=== PATIENT | female | born 1950 | race Caucasian/White ===

== ENCOUNTER → 2020-05-08 15:19 | Outpatient (CLI) | payer MEDICARE, OTHER, SELFPAY ==
--- NOTE | 2020-05-08 15:24 | DI.RAD.S_ITS ---
PROCEDURE: XR CERVICAL SPINE 4V OR 5V INDICATIONS: cervical radiculopathy TECHNIQUE: 5 views of the cervical spine were acquired. COMPARISON: None. FINDINGS: Bones: No fractures or dislocations to the T1 level. No suspicious bony lesions. Loss of lordosis which could be related to muscle spasm, rigidity or simply positional. Multilevel disc degeneration, severe at the C4-C5, C5-C6 and C6-C7 levels. Oblique views are limited secondary to difficulties in positioning demonstrating moderate multilevel mid and lower cervical spine bilateral neural foraminal narrowing. Mild multilevel uncovertebral hypertrophy. Soft tissues: Prevertebral soft tissues are normal in thickness. IMPRESSION: Loss of lordosis and multilevel spondylosis. Dictated by: Mat Johnson [facility] Interpreted: Basilio Trinidad MD on 05/08/2020 at 16:56 Approved by: Basilio Trinidad M.D. on 05/08/2020 at 17:54
== END ==
PROVIDERS: Family Provider Chiropractor; PCP Family Medicine; Referring Provider Physical Medicine & Rehabilitation; Visit Provider Physical Medicine & Rehabilitation
DX: M50.30 Other cervical disc degeneration, unspecified cervical region (principal); M47.22 Other spondylosis with radiculopathy, cervical region; M50.121 Cervical disc disorder at C4-C5 level with radiculopathy
CPT/HCPCS: 72050

== ENCOUNTER → 2020-07-14 12:57 | Outpatient (CLI) | payer MEDICARE, OTHER, SELFPAY ==
--- NOTE | 2020-07-14 13:00 | DI.MRI.S_ITS ---
PROCEDURE: MR CERVICAL SPINE WO CON INDICATIONS: Cervical radiculopathy TECHNIQUE: Noncontrast sagittal T1 spin echo and T2 fast spin echo, sagittal STIR, foraminal oblique sagittal T2 fast spin echo, and axial gradient echo or T2 fast spin echo through the cervical spine. COMPARISON: [facility], CR, XR CERVICAL SPINE 4V OR 5V, 05/08/2020, 15:41. [facility], MR, C-SPINE WITHOUT CONTRAST, 12/17/2016, 16:45. FINDINGS: Image quality: Excellent. Alignment and Curvature: There is loss of normal cervical lordosis. Mild kyphosis at C4-C6. Bone Marrow: Marrow demonstrates normal overall signal. Moderate reactive signal within the endplates adjacent to the C4-C5, C5-C6, and C6-C7 intervertebral discs. Mild reactive signal within the endplates adjacent to the C3-C4 intervertebral disc. Spinal Cord: Visualized spinal cord has normal size and signal. No cerebellar tonsillar herniation. Paraspinous Soft Tissues: No paravertebral masses. Prevertebral soft tissues are normal in thickness. C2-C3: Moderate disc desiccation. No significant canal, or foraminal stenosis. No change. C3-C4: Moderate disc desiccation. Mild disc height loss. Mild diffuse disc bulge. Mild facet and uncovertebral hypertrophy bilaterally. Mild canal stenosis. Mild bilateral foraminal stenosis. No change. C4-C5: Moderate disc height loss and desiccation. Mild diffuse disc bulge/osteophyte with superimposed broad-based right posterolateral protrusion. Moderate right and mild left facet and uncovertebral hypertrophy. Moderate canal stenosis. Moderate right and mild left foraminal stenosis. No change. C5-C6: Severe disc height loss and desiccation. Mild diffuse disc bulge. Moderate facet and uncovertebral hypertrophy bilaterally. Moderate canal stenosis. Moderate right greater than left foraminal stenosis. No change. C6-C7: Moderate disc height loss and desiccation. Mild diffuse disc bulge. Mild facet and uncovertebral hypertrophy bilaterally. Mild canal stenosis. Moderate right and severe left foraminal stenosis. Left C7 nerve root compression. No change. C7-T1: Mild disc height loss and desiccation. Mild facet and uncovertebral hypertrophy bilaterally. No canal stenosis. No foraminal stenosis. IMPRESSION: 1. Multilevel degenerative disc and facet disease, as well as uncovertebral hypertrophy. 2. Multilevel canal stenosis, worst at C4-C5 and C5-C6, where there are moderate canal stenosis. 3. Multilevel foraminal stenosis, worst at C6-C7 where there is intraforaminal nerve root compression. Recommend correlation with clinical symptoms to ascertain relevance of this finding. Dictated by: Allan Zimmer M.D. on 07/15/2020 at 9:24 Approved by: Allan Zimmer M.D. on 07/15/2020 at 9:30
== END ==
PROVIDERS: Family Provider Chiropractor; PCP Family Medicine; Referring Provider Physical Medicine & Rehabilitation; Visit Provider Physical Medicine & Rehabilitation
DX: M50.11 Cervical disc disorder with radiculopathy, high cervical region (principal); M48.02 Spinal stenosis, cervical region
CPT/HCPCS: 72141

== ENCOUNTER → 2020-07-20 09:30 | Outpatient (CLI) | payer MEDICARE, OTHER, SELFPAY ==
[2020-07-22 02:28] LABS: COVID19 Sendout Not Detected (Not Detect)
== END ==
PROVIDERS: Family Provider Chiropractor; PCP Family Medicine; Visit Provider Nurse Practitioner
DX: Z11.59 Encounter for screening for other viral diseases (principal)
CPT/HCPCS: 87635

== ENCOUNTER 2020-07-23 10:34 | Outpatient (CLI) | payer MEDICARE, OTHER, SELFPAY ==
[2020-07-23] VITALS (8 sets, daily range): BP systolic 134–161; BP diastolic 80–91; PULSE 63–89; RESP 14–20; TEMP 36.1; O2SAT 95–99
--- NOTE | 2020-07-23 10:38 | DI.RAD.S_ITS ---
PROCEDURE: PAIN C/T INTERLAMINAR INJECT INDICATIONS: SPINAL STENOSIS COMPARISON: None. FINDINGS: Fluoroscopic spot filming was performed to verify placement of spinal needles at the C6-7 posterior midline interlaminar space), as labeled on the films. Appropriate location(s) of the needle tip(s) was confirmed by injection of iodinated contrast. IMPRESSION: Expected needle tip localization dorsally, C6-7 interlaminar space, for epidural steroid injection. Dictated by: Carlos Smalls M.D. on 07/23/2020 at 13:47 Approved by: Carlos Smalls M.D. on 07/23/2020 at 13:48
[2020-07-23] MEDS: fentaNYL 100 MCG/2 ML INJ 50 MCG IV (12:16)
[2020-07-23] MEDS: IOPAMIDOL 15 ML VIAL 3 ML INJ (12:16)
[2020-07-23] MEDS: MIDAZOLAM 5 MG/5 ML VIAL IV (12:21)
[2020-07-23] MEDS: DEXAMETHASONE 10 MG/ML VIAL 30 MG INJ (12:21)
[2020-07-23] MEDS: BUPIVACAINE 0.25% (PF) VIAL 2 ML INJ (12:22)
--- NOTE | 2020-07-23 12:37 | P.PCN_ITS ---
Date/Time/Diagnoses Date of procedure: 07/23/20 Time of procedure: 12:37 Pre-procedure diagnosis: 1. CERVICAL STENOSIS, 2. CERVICAL HNP WITH UPPER EXTREMITY RADICULAR FEATURES Post-procedure diagnosis: same Procedure Notes Procedure: 1. FLUORSCOPICALLY GUIDED CONTRAST CONTROLLED INTERLAMINAR EPIDURAL STEROID INJECTION - C6/7 TL LYUBOV Indications: Belen is referred by Dr. Rivera for treatment of Cervical HNP with Upper Extremity Paresthesias. Physician: Luis Alberto Peng Total Fluoroscopy time (seconds): 36 Total sedation minutes: 17 Complications: none Procedure in detail & Post-procedure care: FINDINGS Cervical Stenosis due to disc deterioration and nerve root irritation and nerve root irritation DESCRIPTION OF PROCEDURE Fluoroscopically guided, contrast-controlled C6/7 translaminar epidural steroid injection with conscious sedation. Following review of allergy and review of potential side effects and complications, including, but not necessarily limited to, infection, allergic reaction, local tissue breakdown, temporary as well as permanent nerve injury, stroke, paralysis, and possible , the patient indicated that patient understood and agreed to proceed. An informed consent document was signed by the patient, witnessed by a nurse, and placed in the patient's chart. Additionally, other treatment options including modalities, medications, and physical therapy were reviewed with the patient. After review of previous anaesthesic history and IV conscious sedation the patient was deemed safe to proceed with today?s procedure with IV conscious sed ation as ASA class II designation. Safety time-out was performed to confirm patient ID, procedure to be performed and site of procedure. IV sedation was accomplished with a combination of 3mg of Versed and 50mcg of Fentanyl administered by the RN after DO order, titrated to patient comfort during the course of the procedure while the patient remained responsive to all verbal commands. In the prone position, following sterile prep and drape of the cervical region, the C6/7 translaminar space was identified fluoroscopically. The skin was anesthetized via a 25-gauge 1.5-inch needle with 1% lidocaine solution. At this point, a 25-gauge, 2.5-inch short bevel spinal needle was atraumatically introduced and advanced under fluoroscopic guidance into epidural space at the C6/7 translaminar space. Depth was confirmed on lateral view. Radiological data, including multiple fluoroscopic views of the cervical spine, reveal a spinal needle at the C6/7 translaminar space. Lateral views then show placement of the needle in the epidural space. Subsequent views show contrast material flowing superiorly and inferiorly in the epidural space. DSA fluoroscopy with live contrast injection, once again, confirmed no vascular or intrathecal uptake. At this point, using loss of resistance technique with saline and air, the epidural space was entered. Following negative aspiration, injection of approximately 1.5 cc of Isovue-200 with live fluoroscopy in the AP view confirmed epidural flow in the epidural space without vascular or intrathecal uptake observed. Subsequently, a test dose of 1 cc of 1% lidocaine solution was injected and patient was observed for two minutes without signs or symptoms of complications, including abdominal pain, shortness of breath, bilateral upper or lower extremity weakness, nausea and vomiting, prior to steroid injection. At this point, 3cc or 30mg of dexamethasone was then injected without incident. The patient tolerated the procedure well without signs or symptoms of complications prior to being transferred to the recovery area for further monitoring, The patient was then transferred to the recovery area where they were observed for an appropriate period of time after the injection. The patient reported a VAS score of 6 prior to the procedure and a post-procedure VAS of 0. POST OP INSTRUCTIONS The patient was provided a Pain Log to continue to record their response to the target-specific procedure prior to follow-up visit with the referring provider. Additionally, specific post-injection care instructions and a contact number to our office were provided if concerns arise regarding possible complications associated with the procedure are suspected.
== END 2020-07-23 13:18 | disposition home or self-care (01) ==
LOC: RAD 10:37
PROVIDERS: Family Provider Chiropractor; PCP Family Medicine; Referring Provider Physical Medicine & Rehabilitation; Visit Provider Physical Medicine & Rehabilitation
DX: M48.02 Spinal stenosis, cervical region (principal); M50.123 Cervical disc disorder at C6-C7 level with radiculopathy; R20.2 Paresthesia of skin
CPT/HCPCS: 62321; 99152; J1100; J2250; J3010

== ENCOUNTER → 2021-06-10 08:27 | Outpatient (CLI) | payer MEDICARE, OTHER, SELFPAY ==
[2021-06-10 12:30] LABS: COVID19 -Nasal RAPID Negative (Negative)
== END ==
PROVIDERS: Family Provider Chiropractor; PCP Internal Medicine; Visit Provider Physical Medicine & Rehabilitation
DX: Z20.822 Contact with and (suspected) exposure to COVID-19 (principal)
CPT/HCPCS: 87635; C9803

== ENCOUNTER 2021-06-12 08:36 | Outpatient (CLI) | payer MEDICARE, OTHER, SELFPAY ==
[2021-06-12] VITALS (11 sets, daily range): BP systolic 118–187; BP diastolic 66–101; PULSE 69–89; RESP 8–16; TEMP 36.7; O2SAT 88–100
--- NOTE | 2021-06-12 | DI.RAD.S_ITS ---
PROCEDURE: XR HIP W PEL IF DONE CONNIE MIN 4V INDICATIONS: PAIN TECHNIQUE: AP pelvis with lateral view(s) of the bilateral hip(s). COMPARISON: None. FINDINGS: Bones: No fractures or dislocations. Pelvic ring appears intact. No suspicious bony lesions. Mild bilateral hip degenerative change. Soft tissues: The visualized bowel gas pattern is normal. No suspicious soft tissue calcifications. IMPRESSION: Mild bilateral hip degenerative change. No evidence acute bony abnormality of the pelvis and bilateral hips. If clinical suspicion and/or symptoms persist, further assessment with repeat plain films, or advanced imaging (e.g., CT, MRI, or bone scan) may be helpful for further assessment. Dictated by: Damian French M.D. on 06/12/2021 at 11:44 Approved by: Damian French M.D. on 06/12/2021 at 11:45
--- NOTE | 2021-06-12 08:38 | DI.RAD.S_ITS ---
PROCEDURE: PAIN C/T INTERLAMINAR INJECT INDICATIONS: C6-7 translaminar LYUBOV COMPARISON: [facility], , PAIN C/T INTERLAMINAR INJECT, 07/23/2020, 13:19. FINDINGS: Fluoroscopic spot filming was performed to verify placement of spinal needles at the C6-7 level, as labeled on the films. Appropriate location of the needle tip was confirmed by injection of iodinated contrast. IMPRESSION: Needle tip at the dorsal C6-7 interlaminar space. Dictated by: Benton Bowling M.D. on 06/12/2021 at 17:03 Approved by: Benton Bowling M.D. on 06/12/2021 at 17:04
[2021-06-12] MEDS: MIDAZOLAM 5 MG/5 ML VIAL IV (10:22)
[2021-06-12] MEDS: fentaNYL 100 MCG/2 ML INJ 50 MCG IV (10:22)
[2021-06-12] MEDS: DEXAMETHASONE 10 MG/ML VIAL 30 MG INJ (10:30)
[2021-06-12] MEDS: BUPIVACAINE 0.25% (PF) VIAL 2 ML INJ (10:30)
[2021-06-12] MEDS: IOPAMIDOL 15 ML VIAL 3 ML INJ (10:30)
--- NOTE | 2021-06-12 10:32 | P.PCN_ITS ---
Date/Time/Diagnoses Date of procedure: 06/12/21 Time of procedure: 10:32 Pre-procedure diagnosis: 1. CERVICAL STENOSIS, 2. CERVICAL HNP WITH UPPER EXTREMITY RADICULAR FEATURES Post-procedure diagnosis: same Procedure Notes Procedure: 1. FLUORSCOPICALLY GUIDED CONTRAST CONTROLLED INTERLAMINAR EPIDURAL STEROID INJECTION - C6/7 TL LYUBOV Indications: Familia is referred by Dr. Heard for treatment of Cervical HNP with Upper Extremity Paresthesias. Physician: Luis Alberto Peng Total Fluoroscopy time (seconds): 19 Total sedation minutes: 8 Complications: none Procedure in detail & Post-procedure care: FINDINGS Cervical Stenosis due to disc deterioration and nerve root irritation and nerve root irritation DESCRIPTION OF PROCEDURE Fluoroscopically guided, contrast-controlled C6/7 translaminar epidural steroid injection with conscious sedation. Following review of allergy and review of potential side effects and complications, including, but not necessarily limited to, infection, allergic reaction, local tissue breakdown, temporary as well as permanent nerve injury, stroke, paralysis, and possible , the patient indicated that patient understood and agreed to proceed. An informed consent document was signed by the patient, witnessed by a nurse, and placed in the patient's chart. Additionally, other treatment options including modalities, medications, and physical therapy were reviewed with the patient. After review of previous anaesthesic history and IV conscious sedation the patient was deemed safe to proceed with today?s procedure with IV conscious sedation as ASA class II designation. Safety time-out was performed to confirm patient ID, procedure to be performed and site of procedure. IV sedation was accomplished with a combination of 3mg of Versed and 50mcg of Fentanyl administered by the RN after DO order, titrated to patient comfort during the course of the procedure while the patient remained responsive to all verbal commands. In the prone position, following sterile prep and drape of the cervical region, the C6/7 translaminar space was identified fluoroscopically. The skin was anesthetized via a 25-gauge 1.5-inch needle with 1% lidocaine solution. At this point, a 25-gauge, 2.5-inch short bevel spinal needle was atraumatically introduced and advanced under fluoroscopic guidance into epidural space at the C6/7 translaminar space. Depth was confirmed on lateral view. Radiological data, including multiple fluoroscopic views of the cervical spine, reveal a spinal needle at the C6/7 translaminar space. Lateral views then show placement of the needle in the epidural space. Subsequent views show contrast material flowing superiorly and inferiorly in the epidural space. DSA fluoroscopy with live contrast injection, once again, confirmed no vascular or intrathecal uptake. At this point, using loss of resistance technique with saline and air, the epidural space was entered. Following negative aspiration, injection of a pproximately 1.5 cc of Isovue-200 with live fluoroscopy in the AP view confirmed epidural flow in the epidural space without vascular or intrathecal uptake observed. Subsequently, a test dose of 1 cc of 1% lidocaine solution was injected and patient was observed for two minutes without signs or symptoms of complications, including abdominal pain, shortness of breath, bilateral upper or lower extremity weakness, nausea and vomiting, prior to steroid injection. At this point, 3cc or 30mg of dexamethasone was then injected without incident. The patient tolerated the procedure well without signs or symptoms of complications prior to being transferred to the recovery area for further monitoring, The patient was then transferred to the recovery area where they were observed for an appropriate period of time after the injection. The patient reported a VAS score of 6 prior to the procedure and a post-procedure VAS of 0. POST OP INSTRUCTIONS The patient was provided a Pain Log to continue to record their response to the target-specific procedure prior to follow-up visit with the referring provider. Additionally, specific post-injection care instructions and a contact number to our office were provided if concerns arise regarding possible complications associated with the procedure are suspected.
== END 2021-06-12 11:00 | disposition home or self-care (01) ==
LOC: RAD 08:38
PROVIDERS: Family Provider Chiropractor; PCP Internal Medicine; Referring Provider Physical Medicine & Rehabilitation; Visit Provider Physical Medicine & Rehabilitation
DX: M48.02 Spinal stenosis, cervical region (principal); M25.552 Pain in left hip; M50.123 Cervical disc disorder at C6-C7 level with radiculopathy
CPT/HCPCS: 62321; 73522; J1100; J2250; J3010

== ENCOUNTER → 2022-05-27 14:53 | Outpatient (CLI) | payer MEDICARE, OTHER, SELFPAY ==
--- NOTE | 2022-05-27 14:55 | DI.MG.S_ITS ---
UNILATERAL RIGHT DIGITAL SCREENING MAMMOGRAM 3D/2D WITH CAD: 05/27/2022 CLINICAL: Routine screening. Personal history of left breast cancer. Comparison is made to exam dated: 01/21/2021 mammogram - outside. The right breast is heterogeneously dense, which may obscure small masses (category c / 51-75% glandular tissue). Current study was also evaluated with a Computer Aided Detection (CAD) system. No significant masses, calcifications, or other findings are seen in the breast. There has been no significant interval change. IMPRESSION: NEGATIVE There is no mammographic evidence of malignancy. A 1 year screening mammogram is recommended. This exam was interpreted at Station ID: [id number]. NOTE: For mammograms, a report in lay terms will be sent to the patient. Approximately 15% of breast malignancies will not be visualized mammographically. In the management of a palpable breast mass, a negative mammogram must not discourage biopsy of a clinically suspicious lesion. Electronically Signed By: Uriel tran/chaz:05/27/2022 17:26:47 letter sent: Normal Exam ACR BI-RADS Category 1: Negative 3341F
--- NOTE | 2022-05-27 14:55 | DI.CT.S_ITS ---
PROCEDURE: CT CHEST WO CON INDICATIONS: ROUTINE BREAST SCREENING;LUNG SCREEN TECHNIQUE: Noncontrast 5 mm thick sections acquired from the pulmonary apices to the posterior costophrenic angles. 1 mm lung window, 5 mm thick coronal and sagittal and 7 mm axial MIP reformats were then acquired. For radiation dose reduction, the following was used: automated exposure control, adjustment of mA and/or kV according to patient size. COMPARISON: None. FINDINGS: Image quality: Excellent. Lungs and pleura: No acute air space opacities. 9 x 11 mm nodule in the left lower lobe with a central calcification. Ill-defined 15 mm ground-glass opacity in the right upper lobe series 3, image 67. No pleural effusions or pneumothorax. Central and peripheral airways are patent and normal in caliber. Mediastinum: Heart size is normal. The coronary arteries have atherosclerotic calcifications. No pericardial effusion. No mediastinal adenopathy by size criteria. Thoracic aorta and central pulmonary arteries are normal in size. Esophagus is normal in caliber. Small hiatal hernia. Bones and chest wall: No suspicious bony lesions. No vertebral body compression fractures. No axillary or supraclavicular adenopathy by size criteria. Thyroid gland is normal. There are surgical clips in the left axilla. Abdomen: Visualized upper abdominal solid organs and bowel loops appear normal in the absence of contrast. IMPRESSION: 1. 9 x 11 mm nodule in the left lower lobe with a central calcification is benign. 2. Subtle 15 mm ground-glass opacity in the right upper lobe. LUNG-RADS 2. Very low likelihood of becoming clinically active cancer due to small size < 6 millimeters; continue annual screening with low-dose CT. Dictated by: Serge Peña M.D. on 05/27/2022 at 21:27 Approved by: Serge Peña M.D. on 05/27/2022 at 21:35
== END ==
PROVIDERS: Family Provider Chiropractor; PCP Internal Medicine; Referring Provider Internal Medicine; Visit Provider Internal Medicine
DX: Z12.31 Encounter for screening mammogram for malignant neoplasm of breast (principal); Z87.891 Personal history of nicotine dependence; Z85.3 Personal history of malignant neoplasm of breast; R91.1 Solitary pulmonary nodule
CPT/HCPCS: 71250; 77063; 77067

== ENCOUNTER → 2023-05-28 14:24 | Outpatient (CLI) | payer MEDICARE, OTHER, SELFPAY ==
--- NOTE | 2023-05-28 | DI.MG.S_ITS ---
UNILATERAL RIGHT DIGITAL SCREENING MAMMOGRAM 3D/2D WITH CAD: 05/28/2023 CLINICAL: Routine screening. Personal history of left breast cancer. Family history of breast cancer. Comparison is made to exams dated: 05/27/2022 mammogram - [facility], 12/23/2020 mammogram, and 10/26/2019 mammogram - [facility]. The right breast is heterogeneously dense, which may obscure small masses (category c / 51-75% glandular tissue). Current study was also evaluated with a Computer Aided Detection (CAD) system. There is a possible developing 0.7 cm oval equal density asymmetry in the right breast middle depth superior region seen on the mediolateral oblique view only. This is more prominent and increased in size. No other significant masses or calcifications are seen in the breast. IMPRESSION: INCOMPLETE: NEEDS ADDITIONAL IMAGING EVALUATION The possible developing 0.7 cm oval equal density asymmetry in the right breast has a differential diagnosis of fibroglandular tissue and is indeterminate. Additional views with possible ultrasound are recommended. This exam was interpreted at Station ID: [id number]. NOTE: For mammograms, a report in lay terms will be sent to the patient. Approximately 15% of breast malignancies will not be visualized mammographically. In the management of a palpable breast mass, a negative mammogram must not discourage biopsy of a clinically suspicious lesion. Electronically Signed By: Talha Beal M.D. aty/:05/28/2023 16:19:53 letter sent: Additional Imaging Needed ACR BI-RADS Category 0: Incomplete [id number]
== END ==
PROVIDERS: Family Provider Chiropractor; PCP Internal Medicine; Referring Provider Internal Medicine; Visit Provider Internal Medicine
DX: Z12.31 Encounter for screening mammogram for malignant neoplasm of breast (principal); Z85.3 Personal history of malignant neoplasm of breast; Z80.3 Family history of malignant neoplasm of breast
CPT/HCPCS: 77063; 77067

== ENCOUNTER → 2023-06-08 08:34 | Outpatient (CLI) | payer MEDICARE, OTHER, SELFPAY ==
--- NOTE | 2023-06-08 | DI.MG.S_ITS ---
UNILATERAL RIGHT DIGITAL DIAGNOSTIC MAMMOGRAM 3D/2D WITH ADDITIONAL VIEWS: 06/08/2023 CLINICAL: Additional evaluation requested from prior study. Comparison is made to exams dated: 05/28/2023 mammogram, 05/27/2022 mammogram - [facility], and 01/21/2021 mammogram - outside. The right breast is heterogeneously dense, which may obscure small masses (category c / 51-75% glandular tissue). The possible developing asymmetry in the right breast middle depth superior region seen on the mediolateral oblique view only is not seen in additional views. No other significant masses or calcifications are seen in the breast. IMPRESSION: BENIGN The right breast asymmetry seen on the screening mammogram likely respresents superimposed fibroglandular tissue and is benign. There is no mammographic evidence of malignancy. Return to annual mammogram screening schedule is recommended. This exam was interpreted at Station ID: [id number]. NOTE: For mammograms, a report in lay terms will be sent to the patient. Approximately 15% of breast malignancies will not be visualized mammographically. In the management of a palpable breast mass, a negative mammogram must not discourage biopsy of a clinically suspicious lesion. Electronically Signed By: Una daugherty/:06/08/2023 09:08:16 letter sent: Normal Exam ACR BI-RADS Category 2: Benign Finding(s) [id number]
== END ==
PROVIDERS: Family Provider Chiropractor; PCP Internal Medicine; Referring Provider Internal Medicine; Visit Provider Internal Medicine
DX: R92.8 Other abnormal and inconclusive findings on diagnostic imaging of breast (principal)
CPT/HCPCS: 77065; G0279

== ENCOUNTER → 2023-06-09 14:25 | Outpatient (CLI) | payer MEDICARE, OTHER, SELFPAY ==
--- NOTE | 2023-06-09 14:29 | DI.RAD.S_ITS ---
PROCEDURE: XR CERVICAL SPINE 4V OR 5V INDICATIONS: Cervical radiculopathy TECHNIQUE: 5 views of the cervical spine acquired. COMPARISON: [facility], CR, XR CERVICAL SPINE 4V OR 5V, 05/08/2020, 15:41. FINDINGS: Bones: Disc space narrowing anterior osteophytes with hypertrophic facet joints noted in the mid to lower cervical spine. Evaluation of the right neural foramina is nondiagnostic due to patient positioning. Left neural foramina are widely patent. Craniovertebral relationships normal. Soft tissues: No prevertebral soft tissue swelling. IMPRESSION: Degenerative disc disease in the mid to lower cervical spine. Evaluation the right neural foramina are nondiagnostic due to positioning. Consider follow-up CT evaluation Approved by: Dk Yañez M.D. on 06/09/2023 at 19:02
--- NOTE | 2023-06-09 14:29 | DI.RAD.S_ITS ---
PROCEDURE: XR LUMBAR SPINE MIN 4V INDICATIONS: Low back pain right hip pain TECHNIQUE: 5 views of the lumbar spine were acquired, including bilateral oblique views. COMPARISON: None. FINDINGS: Bones: 5 nonrib-bearing vertebrae are present. There is normal bony alignment. No vertebral body compression fractures. No suspicious bony lesions. Convex right thoracolumbar scoliosis has a rotary component as well. Disc space narrowing and hypertrophic facet joints noted in the mid lumbar lower lumbar spine. No evidence of fracture or traumatic malalignment Soft tissues: Overlying bowel gas pattern is normal. No suspicious soft tissue calcifications. Oblique images: No pars defects. IMPRESSION: Thoracolumbar rotodextroscoliosis Approved by: Dk Yañez M.D. on 06/09/2023 at 18:59
== END ==
PROVIDERS: Family Provider Chiropractor; PCP Internal Medicine; Referring Provider Physical Medicine & Rehabilitation; Visit Provider Physical Medicine & Rehabilitation
DX: M50.10 Cervical disc disorder with radiculopathy, unspecified cervical region (principal); M16.11 Unilateral primary osteoarthritis, right hip; M47.816 Spondylosis without myelopathy or radiculopathy, lumbar region; M41.9 Scoliosis, unspecified; M47.22 Other spondylosis with radiculopathy, cervical region; M48.02 Spinal stenosis, cervical region; M70.61 Trochanteric bursitis, right hip; Z90.12 Acquired absence of left breast and nipple
CPT/HCPCS: 72050; 72110; 99214

== ENCOUNTER → 2023-06-10 18:36 | Outpatient (CLI) | payer MEDICARE, OTHER, SELFPAY ==
--- NOTE | 2023-06-10 18:38 | DI.MRI.S_ITS ---
PROCEDURE: MR CERVICAL SPINE WO CON INDICATIONS: C7 radiculopathy TECHNIQUE: Noncontrast sagittal T1 spin echo and T2 fast spin echo, sagittal STIR, foraminal oblique sagittal T2 fast spin echo, and axial gradient echo or T2 fast spin echo through the cervical spine. COMPARISON: [facility], MR, MR CERVICAL SPINE WO CON, 07/14/2020, 13:12. FINDINGS: Image quality: Excellent. Alignment and Curvature: Reversal the normal cervical lordosis, stable from the prior. Degenerative grade 1 anterior spondylolisthesis C2-3 and C3-4. Bone Marrow: Degenerative endplate changes Spinal Cord: Visualized spinal cord has normal size and signal. No cerebellar tonsillar herniation. Paraspinous Soft Tissues: No paravertebral masses. Prevertebral soft tissues are normal in thickness. C2-C3: Normal appearance. C3-C4: Normal appearance. C4-C5: Disc space narrowing with posterior disc osteophyte complex results in [id number] central stenosis. Moderate bilateral foraminal stenosis C5-C6: A disc space narrowing and posterior disc osteophyte complex results in mild central stenosis. Mild bilateral foraminal stenosis. C6-C7: Disc space narrowing and posterior disc osteophyte complex. Mild central stenosis. Moderate right and no left foraminal stenosis. C7-T1: Normal appearance. IMPRESSION: Degenerative disc disease and arthropathy results in varying degrees of central and foraminal stenosis including mild to moderate central stenosis C4-5 and moderate foraminal stenosis C6-7 Approved by: Dk Yañez M.D. on 06/11/2023 at 15:50
== END ==
PROVIDERS: Family Provider Chiropractor; PCP Internal Medicine; Referring Provider Physical Medicine & Rehabilitation; Visit Provider Physical Medicine & Rehabilitation
DX: M48.02 Spinal stenosis, cervical region (principal); M47.812 Spondylosis without myelopathy or radiculopathy, cervical region; M50.321 Other cervical disc degeneration at C4-C5 level
CPT/HCPCS: 72141

== ENCOUNTER → 2023-06-16 14:15 | Outpatient (CLI) | payer MEDICARE, OTHER, SELFPAY ==
--- NOTE | 2023-06-16 | DI.RAD.S_ITS ---
Bone Density Report Name: BERTIN RAYGOZA Age: 72 Sex: Female Ethnicity: White Date of : 1950 Indication: postmenopausal; screening for osteoporosis; Referring Provider: DESTINY IBARRA Study: Bone densitometry was performed. Exam Date: June 16, 2023 Accession number: [id number] Bone Density: Region BMD T-score Z-score Classification AP Spine(L1-L4) 0.894 -1.4 0.8 Osteopenia Femoral Neck (Left) 0.563 -2.6 -0.7 Osteoporosis Total Hip (Left) 0.770 -1.4 0.2 Osteopenia Femoral Neck (Right) 0.568 -2.5 -0.6 Osteoporosis Total Hip (Right) 0.695 -2.0 -0.4 Osteopenia Total Hip Mean 0.733 -1.7 -0.1 Osteopenia World Health Organization criteria for BMD impression classify patients as: Normal (T-score at or above -1.0), Osteopenia (T-score between -1.0 and -2.5), or Osteoporosis (T-score at or below -2.5). Impression: The patient has osteoporosis, based on the Left Femoral Neck T-score. Discussion: INCREASED RISK OF FRACTURE. BONE DENSITY IS UNDESIRABLY LOW AT ONE OR MORE SKELETAL SITES, CONSISTENT WITH POSTMENOPAUSAL OSTEOPOROSIS. This patient's lowest T-score meets the World Health Organization's (WHO) criteria for osteoporosis at one or more sites (T-score -2.5 or below). In untreated patients, the risk of osteoporotic fracture increases approximately two-fold for each 1.0 SD decrease in T-score. Low bone density is not the only risk factor for fracture; also consider factors such as patient's age, frailty or poor health, risk of falling, risk of injury, previous osteoporotic fracture, family history of osteoporosis, cigarette smoking, low body weight, etc. Not everyone with low bone mineral density has osteoporosis; osteomalacia and other metabolic bone disorders should also be considered. Patients who have osteoporosis should be evaluated for specific diseases and conditions (secondary causes) that may cause or contribute to bone loss. The [place] [employer]ocrinologists (AACE) and National Osteoporosis Foundation (NOF) recommend pharmacologic intervention for all postmenopausal women whose T-score is in this range. The patient should follow a healthful lifestyle (good nutrition with adequate calcium and vitamin D, and appropriate weight-bearing exercise). Follow-Up: Consider a repeat BMD and Vertebral Fracture Assessment (VFA) exam in 2 years or sooner if medically necessary, to reassess this patient's status. Reported by: ILA GOSS M.D. on 06/18/2023 9:17:00 AM.
== END ==
PROVIDERS: Family Provider Chiropractor; PCP Internal Medicine; Referring Provider Internal Medicine; Visit Provider Internal Medicine
DX: M81.0 Age-related osteoporosis without current pathological fracture (principal); M05.9 Rheumatoid arthritis with rheumatoid factor, unspecified; Z79.83 Long term (current) use of bisphosphonates
CPT/HCPCS: 77080

== ENCOUNTER 2023-06-24 09:31 | Outpatient (CLI) | payer MEDICARE, OTHER, SELFPAY ==
[2023-06-24] VITALS (9 sets, daily range): BP systolic 130–145; BP diastolic 79–93; PULSE 64–75; RESP 11–24; TEMP 36.7; O2SAT 95–99
--- NOTE | 2023-06-24 09:33 | DI.RAD.S_ITS ---
PROCEDURE: PAIN C/T INTERLAMINAR INJECT INDICATIONS: SPINAL STENOSIS COMPARISON: [facility], , PAIN C/T INTERLAMINAR INJECT, 06/12/2021, 10:23. FINDINGS: Fluoroscopic spot filming was performed to verify placement of a spinal needle at the C6-C7 level, as labeled on the films. Appropriate location of the needle tip was confirmed by injection of iodinated contrast. IMPRESSION: No significant intraprocedural abnormality. Dictated by: Pedro Siddiqi M.D. on 06/24/2023 at 18:22 Approved by: ePdro Siddiqi M.D. on 06/24/2023 at 18:22
[2023-06-24] MEDS: MIDAZOLAM 2 MG/2 ML VIAL IV (11:10)
[2023-06-24] MEDS: BUPIVACAINE 0.25% (PF) VIAL 2 ML INJ (11:15)
[2023-06-24] MEDS: DEXAMETHASONE 10 MG/ML VIAL 20 MG INJ (11:16)
[2023-06-24] MEDS: fentaNYL 100 MCG/2 ML INJ IV (11:17)
[2023-06-24] MEDS: iopamidoL 15 ML VIAL 3 ML INJ (11:18)
--- NOTE | 2023-06-24 11:30 | P.PCN_ITS ---
Date/Time/Diagnoses Date of procedure: 06/24/23 Time of procedure: 11:30 Pre-procedure diagnosis: 1. CERVICAL STENOSIS, 2. CERVICAL HNP WITH UPPER EXTREMITY RADICULAR FEATURES Post-procedure diagnosis: same Procedure Notes Procedure: 1. FLUORSCOPICALLY GUIDED CONTRAST CONTROLLED INTERLAMINAR EPIDURAL STEROID INJECTION - C6/7 TL LYUBOV Indications: Belen is referred by Dr. Heard for treatment of Cervical HNP with Upper Extremity Paresthesias. Physician: Luis Alberto Peng Total Fluoroscopy time (seconds): 36 Total sedation minutes: 17 Complications: none Procedure in detail & Post-procedure care: FINDINGS Cervical Stenosis due to disc deterioration and nerve root irritation and nerve root irritation DESCRIPTION OF PROCEDURE Fluoroscopically guided, contrast-controlled C6/7 translaminar epidural steroid injection with conscious sedation. Following review of allergy and review of potential side effects and complications, including, but not necessarily limited to, infection, allergic reaction, local tissue breakdown, temporary as well as permanent nerve injury, stroke, paralysis, and possible , the patient indicated that patient understood and agreed to proceed. An informed consent document was signed by the patient, witnessed by a nurse, and placed in the patient's chart. Additionally, other treatment options including modalities, medications, and physical therapy were reviewed with the patient. After review of previous anaesthesic history and IV conscious sedation the patient was deemed safe to proceed with today?s procedure with IV conscious se dation as ASA class II designation. Safety time-out was performed to confirm patient ID, procedure to be performed and site of procedure. IV sedation was accomplished with a combination of 2mg of Versed and 100mcg of Fentanyl administered by the RN after DO order, titrated to patient comfort during the course of the procedure while the patient remained responsive to all verbal commands. In the prone position, following sterile prep and drape of the cervical region, the C6/7 translaminar space was identified fluoroscopically. The skin was anesthetized via a 25-gauge 1.5-inch needle with 1% lidocaine solution. At this point, a 25-gauge, 2.5-inch short bevel spinal needle was atraumatically introduced and advanced under fluoroscopic guidance into epidural space at the C6/7 translaminar space. Depth was confirmed on lateral view. Radiological data, including multiple fluoroscopic views of the cervical spine, reveal a spinal needle at the C6/7 translaminar space. Lateral views then show placement of the needle in the epidural space. Subsequent views show contrast material flowing superiorly and inferiorly in the epidural space. DSA fluoroscopy with live contrast injection, once again, confirmed no vascular or intrathecal uptake. At this point, using loss of resistance technique with saline and air, the epidural space was entered. Following negative aspiration, injection of approximately 1.5 cc of Isovue-200 with live fluoroscopy in the AP view confirmed epidural flow in the epidural space without vascular or intrathecal uptake observed. Subsequently, a test dose of 1 cc of 1% lidocaine solution was injected and patient was observed for two minutes without signs or symptoms of complications, including abdominal pain, shortness of breath, bilateral upper or lower extremity weakness, nausea and vomiting, prior to steroid injection. At this point, 2cc or 20mg of dexamethasone was then injected without incident. The patient tolerated the procedure well without signs or symptoms of complications prior to being transferred to the recovery area for further monitoring, The patient was then transferred to the recovery area where they were observed for an appropriate period of time after the injection. The patient reported a VAS score of 7 prior to the procedure and a post-procedure VAS of 1. POST OP INSTRUCTIONS The patient was provided a Pain Log to continue to record their response to the target-specific procedure prior to follow-up visit with the referring provider. Additionally, specific post-injection care instructions and a contact number to our office were provided if concerns arise regarding possible complications associated with the procedure are suspected.
--- NOTE | 2023-06-24 11:40 | PC.NURSE ---
US guided IV insertion by MALCOLM Ledezma.
== END 2023-06-24 11:50 | disposition home or self-care (01) ==
LOC: RAD 09:32
PROVIDERS: Family Provider Chiropractor; PCP Internal Medicine; Referring Provider Physical Medicine & Rehabilitation; Visit Provider Physical Medicine & Rehabilitation
DX: M48.02 Spinal stenosis, cervical region (principal); M50.123 Cervical disc disorder at C6-C7 level with radiculopathy
CPT/HCPCS: 62321; 99152; J1100; J2250; J3010; J3490

== ENCOUNTER → 2023-12-31 13:29 | Outpatient (CLI) | payer MEDICARE, OTHER, SELFPAY ==
--- NOTE | 2023-12-31 13:34 | DI.MRI.S_ITS ---
PROCEDURE: MR HIP RT WO CON INDICATIONS: Right hip pain s/p horse related injury remote TECHNIQUE: Noncontrast coronal T1 spin echo and STIR through the bony pelvis. Coronal and axial T2 fast spin echo with fat saturation, sagittal T1 spin echo, and oblique axial T2 fast spin echo with fat saturation through the hip. COMPARISON: None. FINDINGS: Labrum: Anterior superior labral tear. Ligament: Unremarkable Tendons: The right iliopsoas, adductor, hamstring, and gluteal minimus and gluteal medius are unremarkable. Bones: There is small area of focal chondral defect in the anterior superior acetabulum (series 6, image 12). No acute fracture. No avascular necrosis of the right hip. Other bone findings: Mild marrow edema at the superior endplate of S1, incompletely evaluated. Marrow signal of the sacrum, bilateral iliac wings, and bilateral proximal femur are normal for age. No acute fracture or dislocation of either hip. Other soft tissue findings: Severe sigmoid colon diverticulosis. IMPRESSION: 1. Anterior superior labral tear. 2. Focal chondral defect in the anterior superior acetabulum. 3. Mild marrow edema of the superior endplate of S1, incompletely evaluated, favoring degenerative. Dictated by: Cady Ramirez M.D. on 12/31/2023 at 19:10 Approved by: Cady Ramirez M.D. on 12/31/2023 at 19:19
== END ==
LOC: MRI 13:30
PROVIDERS: Family Provider Chiropractor; PCP Internal Medicine; Referring Provider Physical Medicine & Rehabilitation; Visit Provider Physical Medicine & Rehabilitation
DX: S73.191A Other sprain of right hip, initial encounter (principal); M16.11 Unilateral primary osteoarthritis, right hip; K57.30 Diverticulosis of large intestine without perforation or abscess without bleeding; R60.0 Localized edema
CPT/HCPCS: 73721

== ENCOUNTER → 2024-07-26 13:16 | Outpatient (CLI) | payer MEDICARE, OTHER, SELFPAY ==
--- NOTE | 2024-07-26 13:24 | DI.US.S_ITS ---
LIMITED ULTRASOUND OF RIGHT BREAST AND AXILLA: 07/26/2024 CLINICAL: Patient returns today to evaluate a focal asymmetry in the right breast. Comparison is made to exams dated: 07/26/2024 mammogram, 06/08/2023 mammogram, 05/28/2023 mammogram, 05/27/2022 mammogram - [facility], 01/21/2021 mammogram - outside, and 12/23/2020 mammogram - [facility]. Color flow and real-time ultrasound of the right breast 4-5 o'clock, 9-10 o'clock, retroareolar, and axilla regions were performed. No sonographic abnormality is seen in the area of clinical concern in the right breast retroareolar region, 5 o'clock, 6 cm from the nipple, 4 o'clock, 2 cm from nipple, as well as 9 and 10 o'clock, 7 cm from the nipple. Morphologically normal lymph nodes are seen in the right axilla. IMPRESSION: BENIGN No sonographic abnormality in the areas of clinical concern. Morphologically normal right axillary lymph nodes are benign. No mammographic or sonographic evidence of malignancy. A 1 year screening mammogram is recommended. Clinical follow-up is also recommended, and further management of palpable abnormalities or other focal signs or symptoms should be based on the results of clinical evaluation. If palpable abnormality or other concerning symptom persists or progresses, further clinical evaluation should be considered. Findings and recommendations were conveyed to the patient during today's evaluation. This exam was interpreted at Station ID: [id number]. Electronically Signed By: Hanna Perez M.D., Ph.D. eb/:07/26/2024 16:47:04 letter sent: Clinical Evaluation ACR BI-RADS Category 2: Benign
--- NOTE | 2024-07-26 13:24 | DI.MG.S_ITS ---
UNILATERAL RIGHT DIGITAL DIAGNOSTIC MAMMOGRAM 3D/2D POST MASTECTOMY: 07/26/2024 CLINICAL: Right breast lumps. Comparison is made to exams dated: 06/08/2023 mammogram, 05/28/2023 mammogram, and 05/27/2022 mammogram - [facility]. The breasts are heterogeneously dense, which may obscure small masses (category c / 51-75% glandular tissue). A BB marker was placed in the area of clinical concern, and no mammographic abnormality is identified. No significant masses, calcifications, or other findings are seen in the breast. IMPRESSION: INCOMPLETE: NEED ADDITIONAL IMAGING EVALUATION No mammographic abnormality in the areas of clinical concern. Recommend further evaluation with targeted breast ultrasound, which will immediately follow this exam. This exam was interpreted at Station ID: [id number]. NOTE: For mammograms, a report in lay terms will be sent to the patient. Approximately 15% of breast malignancies will not be visualized mammographically. In the management of a palpable breast mass, a negative mammogram must not discourage biopsy of a clinically suspicious lesion. Electronically Signed By: Hanna Perez M.D., Ph.D. eb/:07/26/2024 16:41:02 letter sent: Additional Imaging Needed ACR BI-RADS Category 0: Incomplete: Need Additional Imaging Evaluation
--- NOTE | 2024-07-26 13:25 | DI.RAD.S_ITS ---
PROCEDURE: XR LUMBAR SPINE 2-3V INDICATIONS: BACK PAIN TECHNIQUE: 3 views of the lumbar spine were acquired. COMPARISON: [facility], , XR LUMBAR SPINE MIN 4V, 06/09/2023, 14:34. FINDINGS: Lumbar spine curvature and alignment: Moderate dextroscoliosis of the lower thoracic and lumbar spine appreciated. Bones: There are no osseous abnormalities. Disc spaces: Severe degenerative disc disease is seen in each level. There is severe degenerative facet disease L4-5 and L5-S1. Soft tissues: No soft tissue swelling, calcification or mass. IMPRESSION: Multilevel degeneration Dictated by: Constantino Willams M.D. on 07/27/2024 at 8:57 Approved by: Constantino Willams M.D. on 07/27/2024 at 8:57
--- NOTE | 2024-07-26 13:25 | DI.RAD.S_ITS ---
PROCEDURE: XR CERVICAL SPINE 2V OR 3V INDICATIONS: BACK PAIN TECHNIQUE: Three-view (s) of the cervical spine were acquired. COMPARISON: [facility], CR, XR CERVICAL SPINE 4V OR 5V, 06/09/2023, 14:34. FINDINGS: Cervical spine curvature and alignment: Normal. Bones: There are no osseous abnormalities. Disc spaces: Moderate C4-5, C5-6, C6-7 and C7-T1 degenerative disc disease noted. There is mild degenerative facet disease C3-4 through C7-T1. No change. Soft tissues: Enlargement of the posterior glossal soft tissues is unchanged from exam over 1 year ago IMPRESSION: Multilevel degeneration-stable Moderate tongue base enlargement which is chronic. Please correlate with physical exam findings Dictated by: Constantino Willams M.D. on 07/27/2024 at 8:49 Approved by: Constantino Willams M.D. on 07/27/2024 at 8:51
--- NOTE | 2024-07-26 13:25 | DI.RAD.S_ITS ---
PROCEDURE: XR THORACIC SPINE 3V INDICATIONS: BACK PAIN TECHNIQUE: 3 views of the thoracic spine were acquired. COMPARISON: None. FINDINGS: Thoracic spine curvature and alignment: Thoracic spine is anatomically aligned. Mild distal scoliosis of the upper lumbar spine appreciated. Bones: There are no osseous abnormalities. Disc spaces: Mild degenerative disc disease is seen throughout the thoracic spine. Intervertebral foramen: Grossly normal in width. Soft tissues: No soft tissue swelling, calcification or mass. IMPRESSION: Mild degenerative disc disease. Dictated by: Constantino Willams M.D. on 07/27/2024 at 8:47 Approved by: Constantino Willams M.D. on 07/27/2024 at 8:48
== END ==
PROVIDERS: Family Provider Chiropractor; PCP Internal Medicine; Referring Provider Internal Medicine; Visit Provider Internal Medicine
DX: R92.2 Inconclusive mammogram (principal); D24.1 Benign neoplasm of right breast; R92.333 Mammographic heterogeneous density, bilateral breasts; Z85.3 Personal history of malignant neoplasm of breast; M47.22 Other spondylosis with radiculopathy, cervical region; M50.121 Cervical disc disorder at C4-C5 level with radiculopathy; M47.816 Spondylosis without myelopathy or radiculopathy, lumbar region; M47.817 Spondylosis without myelopathy or radiculopathy, lumbosacral region; M51.369 Other intervertebral disc degeneration, lumbar region without mention of lumbar back pain or lower extremity pain; M51.379 Other intervertebral disc degeneration, lumbosacral region without mention of lumbar back pain or lower extremity pain
CPT/HCPCS: 72040; 72072; 72100; 76642; 77065; G0279

== ENCOUNTER → 2025-08-08 12:14 | Outpatient (CLI) | payer MEDICARE, OTHER, SELFPAY ==
--- NOTE | 2025-08-08 12:18 | DI.RAD.S_ITS ---
PROCEDURE: XR KNEE LT 3V INDICATIONS: LEFT KNEE PAIN TECHNIQUE: Three views of the knee were acquired. COMPARISON: None. FINDINGS: Bones: Normal mineralization. No acute fractures or suspicious bone lesions. Mild right medial compartment joint space loss and minimal marginal spurring. Patellar alignment is normal on the sunrise view. Soft tissues: Trace joint effusion. Prominent lateral and medial compartment chondrocalcinosis. No suspicious soft tissue calcifications. IMPRESSION: Chondrocalcinosis may indicate pyrophosphate arthropathy, osteoarthritis, hyperparathyroidism or hemochromatosis. Dictated by: Tahmina Walker M.D. on 08/10/2025 at 22:32 Approved by: Tahmina Walker M.D. on 08/10/2025 at 22:33
--- NOTE | 2025-08-08 12:49 | DI.RAD.S_ITS ---
PROCEDURE: XR HIP W PEL IF DONE RT 2V INDICATIONS: RIGHT HIP PAIN TECHNIQUE: 2 views of the hip were acquired. COMPARISON: [facility], CR, XR HIP W PEL IF DONE CONNIE 3TO4V, 06/12/2021, 9:37. FINDINGS: Bones: No fractures or dislocations. No suspicious bony lesions. The visualized pelvic ring appears intact. Soft tissues: No suspicious soft tissue calcifications or masses. IMPRESSION: No acute bony abnormality. Approved by: Dk Yañez M.D. on 08/08/2025 at 14:31
--- NOTE | 2025-08-08 12:49 | DI.RAD.S_ITS ---
PROCEDURE: XR LUMBAR SPINE MIN 4V INDICATIONS: BACK PAIN TECHNIQUE: 5 views of the lumbar spine were acquired, including bilateral oblique views. COMPARISON: [facility], , XR LUMBAR SPINE 2-3V, 07/26/2024, 13:53. FINDINGS: Bones: Convex right thoracolumbar scoliosis. No vertebral anomaly. Oblique images unremarkable. Disc space narrowing and hypertrophic facet joints noted particularly in the lower spine. Soft tissues: Overlying bowel gas pattern is normal. No suspicious soft tissue calcifications. Atherosclerotic calcification in the abdominal aorta noted without evidence of aneurysm. Oblique images: No pars defects. IMPRESSION: Multilevel degenerative disc disease, scoliosis and arthropathy particularly in the lower lumbar spine Approved by: Dk Yañez M.D. on 08/08/2025 at 14:30
== END ==
PROVIDERS: Family Provider Chiropractor; PCP Nurse Practitioner Acute Care; Referring Provider Physical Medicine & Rehabilitation; Visit Provider Physical Medicine & Rehabilitation
DX: M47.816 Spondylosis without myelopathy or radiculopathy, lumbar region (principal); M48.061 Spinal stenosis, lumbar region without neurogenic claudication; M51.369 Other intervertebral disc degeneration, lumbar region without mention of lumbar back pain or lower extremity pain; M11.262 Other chondrocalcinosis, left knee; M16.11 Unilateral primary osteoarthritis, right hip; M70.61 Trochanteric bursitis, right hip; M41.9 Scoliosis, unspecified; M25.562 Pain in left knee
CPT/HCPCS: 72110; 73502; 73562

== ENCOUNTER → 2025-08-14 09:10 | Outpatient (CLI) | payer MEDICARE, OTHER, SELFPAY ==
--- NOTE | 2025-08-14 09:40 | DI.MRI.S_ITS ---
PROCEDURE: MR LUMBAR SPINE WO CON INDICATIONS: Lumbar Radic Right TECHNIQUE: Noncontrast sagittal T1 spin echo and T2 fast echo, sagittal STIR, and T2 fast spin echo through the lumbar spine. In cases with scoliosis, additional coronal T2 fast spin echo may be performed. COMPARISON: None. FINDINGS: Image quality: Excellent. Alignment and Curvature: Dextroscoliotic curvature. Straightening of the normal lumbar lordosis. Bone Marrow: Degenerative endplate changes, most pronounced at L4-5. Marrow is of normal overall signal. No acute vertebral body compression fractures. Spinal Cord: Conus medullaris terminates at the L2 level. Visualized cord demonstrates normal signal and size. Paraspinous Soft Tissues: No paravertebral masses. T12-L1: Mild facet arthropathy. No central canal or neural foraminal stenosis. L1-L2: Disc desiccation and mild disc bulge. Facet arthropathy. No significant central canal or neural foraminal stenosis. L2-L3: Desiccation and mild height loss. Mild diffuse disc bulge with small right paracentral disc protrusion. Facet arthropathy. No significant central canal stenosis. No significant neural foraminal stenosis. L3-L4: Disc desiccation and minimal disc bulge. Facet arthropathy. Epidural lipomatosis. No central canal stenosis. No significant neural foraminal stenosis. L4-L5: Disc desiccation and mild height loss. Diffuse disc bulge. Small superimposed right foraminal disc protrusion. Facet arthropathy. No significant central canal stenosis. Narrowing of the right lateral recess with abutment of the descending right L5 nerve roots. Moderate right and no left neural foraminal stenosis. L5-S1: Disc desiccation and moderate height loss. Diffuse disc bulge with superimposed right foraminal disc protrusion. No central canal stenosis. Moderate right and no significant left neural foraminal stenosis. IMPRESSION: 1. Multilevel degenerative changes of the lumbar spine as described above. 2. No significant central canal stenosis. 3. Moderate right neural foraminal stenosis at L4-5 and L5-S1. Dictated by: Willam Nunez M.D. on 08/14/2025 at 15:21 Approved by: Willam Nunez M.D. on 08/14/2025 at 15:25
== END ==
LOC: MRI 09:12
PROVIDERS: PCP Nurse Practitioner Acute Care; Referring Provider Physical Medicine & Rehabilitation; Visit Provider Physical Medicine & Rehabilitation
DX: M47.816 Spondylosis without myelopathy or radiculopathy, lumbar region (principal); M51.369 Other intervertebral disc degeneration, lumbar region without mention of lumbar back pain or lower extremity pain; M51.379 Other intervertebral disc degeneration, lumbosacral region without mention of lumbar back pain or lower extremity pain; M48.061 Spinal stenosis, lumbar region without neurogenic claudication; M48.07 Spinal stenosis, lumbosacral region
CPT/HCPCS: 72148

== ENCOUNTER 2025-09-06 12:56 | Outpatient (CLI) | payer MEDICARE, OTHER, SELFPAY ==
[2025-09-06 13:45] VITALS: BP 121/69; PULSE 80; RESP 18; O2SAT 96
[2025-09-06 13:57] VITALS: BP 143/68; PULSE 80; RESP 17; O2SAT 96
[2025-09-06] MEDS: MIDAZOLAM 2 MG/2 ML VIAL IV (14:00)
[2025-09-06 14:05] VITALS: BP 112/57; PULSE 87; RESP 19; O2SAT 98
[2025-09-06] MEDS: BETAMETHASONE 30 MG/5 ML MDV 12 MG INJ (14:05)
[2025-09-06 14:10] VITALS: BP 109/55; PULSE 85; RESP 18; O2SAT 98
--- NOTE | 2025-09-06 14:18 | P.PCN_ITS ---
Date/Time/Diagnoses Date of procedure: 09/06/25 Time of procedure: 14:18 Pre-procedure diagnosis: 1. HNP WITH RADICULAR FEATURES, 2. MULTILEVEL CENTRAL STENOSIS, Post-procedure diagnosis: same Procedure Notes Procedure: 1. FLUOROSCOPICALLY GUIDED CONTRAST CONTROLLED INTERLAMINAR EPIDURAL STEROID INJECTION -L4/5 Indications: Belen is referred by ALEXANDRIA Owen for treatment of Bilateral Foraminal Stenosis R>L LE symptoms. Physician: Luis Alberto Peng Total Fluoroscopy time (seconds): 5 Total sedation minutes: 10 Complications: none Procedure in detail & Post-procedure care: FINDINGS Multilevel Central Spinal Stenosis with Nerve Root Compression DESCRIPTION OF PROCEDURE Fluoroscopically guided, contrast-controlled L4/5 translaminar epidural steroid injection. Following review of allergy and review of potential side effects and complications, including, but not necessarily limited to, infection, allergic reaction, local tissue breakdown, temporary as well as permanent nerve injury, paralysis, stroke and possible , the patient indicated that the patient understood and agreed to proceed. An informed consent document was signed by the patient, witnessed by a nurse, and placed in the patient's chart. Additionally, other treatment options including modalities, medications, and physical therapy were reviewed with the patient. After review of previous anaesthesic history and IV conscious sedation the patient was deemed safe to proceed with today?s procedure with IV conscious sedation as ASA class II designation. Safety time-out was performed to confirm p atient ID, procedure to be performed and site of procedure. IV sedation was accomplished with a combination of 2mg of Versed was administered by the RN after DO order, titrated to patient comfort during the course of the procedure while the patient remained responsive to all verbal commands In the prone position, following sterile prep and drape of the lumbar region, the L4/5 translaminar space was identified fluoroscopically. The skin was anesthetized via a 25-gauge, 1.5inch needle with 1% lidocaine solution. At this point, a 22-gauge short bevel spinal needle was atraumatically introduced and advanced under fluoroscopic guidance into the region of the L4/5 translaminar space. Depth was confirmed on lateral view. Radiological data, including multiple fluoroscopic views of the lumbar spine, reveal a spinal needle at the L4/5 translaminar space. Lateral views then show placement of the needle in the epidural space. Subsequent views show contrast material flowing superiorly and inferiorly in the epidural space. No vascular or intrathecal uptake is observed. At this point, using loss of resistance technique with saline and air, the epidural space was entered. This was confirmed following negative aspiration with injection of approximately 1.5cc of Isovue 200, showing excellent epidural flow without vascular or intrathecal uptake. At this point, 1cc of 0.25% marcaine solution combined with 3cc or 10mg of dexamethasone and 12mg betamethasone was injected without incident. The patient tolerated the procedure well without signs or symptoms of complications prior to transfer to the recovery area continued monitoring without incident. The patient was then transferred to the recovery area where they were observed for an appropriate period of time after the injection. The patient reported a VAS score of 6 prior to the procedure and a post- procedure VAS of 0. POST OP INSTRUCTIONS The patient was provided a Pain Log to continue to record their response to the target-specific procedure prior to follow-up visit with their referring physician. Additionally, specific post-injection care instructions and a contact number to our office were provided if concerns arise regarding possible complications associated with the procedure are suspected.
[2025-09-06 14:25] VITALS: BP 102/74; PULSE 79; RESP 18; O2SAT 96
[2025-09-06 14:30] VITALS: BP 118/74; PULSE 73; RESP 17; O2SAT 98
== END 2025-09-06 15:00 | disposition home or self-care (01) ==
LOC: RAD 12:57
PROVIDERS: PCP Nurse Practitioner Acute Care; Referring Provider Physical Medicine & Rehabilitation; Visit Provider Physical Medicine & Rehabilitation
DX: M51.16 Intervertebral disc disorders with radiculopathy, lumbar region (principal); M48.061 Spinal stenosis, lumbar region without neurogenic claudication
CPT/HCPCS: 62323; 99152; J0702; J1100; J2250